=== PATIENT | male | born 1990 | race Caucasian/White ===

== ENCOUNTER 2020-04-24 11:06 | Emergency (ER) | payer BC ==
[2020-04-24] MEDS ORDERED: cefTRIAXone 1 GM in Sodium Chloride 0.9% 100 ML IV ONE (11:29)
[2020-04-24] MEDS ORDERED: Sodium Chloride 0.9% 2.5 ML Syringe FLUSH PRN (11:29)
[2020-04-24] MEDS ORDERED: Sodium Chloride 0.9% 3,000 ML IV ONE (11:29)
[2020-04-24] MEDS ORDERED: Sodium Chloride 0.9% 10 ML Syringe FLUSH PRN (11:29)
[2020-04-24] MEDS ORDERED: Vancomycin 2 GM in Dextrose 5% in Water 250 ML IV ONE ×2 (11:29)
[2020-04-24] MEDS ORDERED: Lidocaine 1% with EPINEPHrine 1:100,000 20 ML MDV INJECT ONE (11:32)
[2020-04-24] MEDS ORDERED: Diphtheria,Pertussis(Acell),Tetanus Vaccine 0.5 ML Syringe IM ONE (11:32)
[2020-04-24] MEDS ORDERED: HYDROmorphone 2 MG/ML Syringe IVPUSH ONE (11:33)
[2020-04-24] MEDS ORDERED: Acetaminophen 325 MG Tab PO ONE (11:33)
[2020-04-24] MEDS ORDERED: cefTRIAXone 1 GM in Premix Bag 1 BAG IV ONE (11:36)
[2020-04-24] MEDS ORDERED: Vancomycin/Water for INJ (PEG) 2 GM in Premix Bag 1 BAG IV ONE (11:43)
--- NOTE | 2020-04-24 11:45 | EDM.PDOC ---
ED [facility] GENERAL MEDICAL PROBLEM - General Chief Complaint: Skin Complaint Stated Complaint: CYST ON CHEST Time Seen by Provider: 04/24/20 11:10 - History of Present Illness INITIAL COMMENTS - FREE TEXT/NARRATIVE: HISTORY AND PHYSICAL: History of present illness: This 29-year-old male presents with a right upper chest wall cyst that has now become infected. He is a patient of Dr. Stanley, general surgery, who started him on antibiotics. Today the erythema had gotten worse and it spontaneously began to drain through a small punctate area he continued to have pain, swelling, and surrounding erythema that is getting worse. He also felt febrile and had a temperature at home. He reports that the pain is severe. No other associated signs or symptoms. No other modifying, aggravating or alleviating factors. Review of systems: A 10-point review of systems, other than pertinent positives and negatives as stated per HPI, is otherwise negative. Past medical history: As per history of present illness and as reviewed below otherwise noncontributory. Surgical history: As per history of present illness and as reviewed below otherwise noncontributory. Social history: No reported history of drug or alcohol abuse. Family history: As per history of present illness and as reviewed below otherwise noncontributory. Physical exam: VITAL SIGNS: Reviewed. GENERAL: Appears to be in acute pain. Wound is covered. Once it was uncovered/disrobed there is a 9 cm in diameter area of erythema with one area on the upper left area that has some purulent drainage. No lymphangitis. HEAD: No signs of head trauma. EYES: Pupils are equal. Extraocular motions intact. EARS: Hearing grossly intact. MOUTH: Oropharynx is normal. NECK: No adenopathy, no JVD. CHEST: Chest with clear breath sounds bilaterally. No wheezes, rales, or rhonchi. As above there is a 9 cm in diameter area of erythema with a fluctuant middle section and one area of punctate drainage. It is purulent. CARDIAC: Tachycardic rate. Regular rhythm. S1-S2 present. No murmurs gallops or rubs. VASCULAR: Peripheral pulses normal and equal in all extremities. ABDOMEN: Soft, without detectable tenderness. No sign of distention. No rebound or guarding, and no masses palpated. MUSCULOSKELETAL: Good range of motion of all major joints. Extremities without clubbing, cyanosis or edema. NEUROLOGIC EXAM: Alert and oriented x 3. No focal sensory or motor deficits. Speech normal. Follows commands. PSYCHIATRIC: Mood normal. SKIN: No rash or lesions. LYMPH: No lymphadenopathy noted Initial Differential Diagnosis & Plan: Abscess, cellulitis, infected cyst, necrotizing fasciitis, lymphangitis, sepsis The patient is pretty tachycardic. We will give IV fluids, IV antibiotics, and perform drainage of the area. Definitive disposition and diagnosis as appropriate pending reevaluation and review of above. Right Chest Pain Score (Numeric/FACES): 7 - Related Data Allergies Allergy/AdvReac Type Severity Reaction Status Date / Time Sulfa (Sulfonamide Allergy Hives Verified 04/24/20 11:20 Antibiotics) Home Meds: Home Meds Chlorhexidine Gluconate 4% [Hibiclens] 473 ml .XX DAILY 3 Days #1 bottle 04/24/20 [Rx] Doxycycline [Vibramycin] 100 mg PO BID 7 Days #14 tab 04/24/20 [Rx] Lactobacillus 3/Fos/Pantethine [Probiotic & Acidophilus] 1 each PO BID 30 Days #60 capsule 04/24/20 [Rx] Mupirocin Oint [Bactroban Oint] 22 gm TP BID 14 Days tube 04/24/20 [Rx] cephALEXin [Cephalexin] 500 mg PO QID 04/24/20 [History] Past Medical History - Past Health History Medical/Surgical History: Denies Medical/Surgical History - Infectious Disease History Infectious Disease History: Reports: None Social & Family History - Family History Family Medical History: Noncontributory - Caffeine Use Caffeine Use: Reports: None - Recreational Drug Use Recreational Drug Use: No ED ROS GENERAL - Review of Systems Review Of Systems: See Below (noted) ED EXAM, SKIN/RASH Exam: See Below (noted) ED SKIN PROCEDURES - I&D Skin Prep: Chlorhexidine (Hibiciens) Local Anesthesia: Lidocaine: 1% with EPI Local Anesthetic Volume: Other (11) Area Incised With: 11 Blade Drainage: Purulent, Large Amount Probed to Break Up Loculations: Yes Packed With: Other (Loop drainage placed) Sterile Dressing: Adhesive Dressing Complications: No (No complications.) Progress/Comments: Informed consent from patient. Area cleansed and prepped in normal fashion. Wound culture taken prior to incision and drainage. Sent to lab for further analysis and to test versus antibiotics because the patient is sulfa allergic. Will require doxycycline along with Keflex for MRSA coverage. Incision was made at the base on the inferior lateral edge. Loculations broken up with mosquito forceps and passed along until the opening where spontaneous drainage occurred. A vessel loop was then passed through from incision site to incision site and tied loosely. This will help prevent further loculation buildup and allow for appropriate drainage with minimal scarring. Complications none. The wound was washed out and covered with antibiotic ointment and a dressing. Appreciate the help and assistance of Ms. Alexandra NP, who assisted in the procedure and washed out the wound for me what tended to other patients. Course - Vital Signs Last Recorded V/S: Last Vital Signs Temp 97.4 F 04/24/20 11:21 Pulse 109 H 04/24/20 14:59 Resp 16 04/24/20 14:59 BP 123/75 04/24/20 14:59 Pulse Ox 96 04/24/20 14:59 - Orders/Labs/Meds Labs: Laboratory Tests 04/24/20 04/24/20 04/24/20 Range/Units 11:50 11:50 11:50 WBC 12.46 H (4.0-11.0) K/uL RBC 5.21 (4.50-5.90) M/uL Hgb 16.8 (13.0-17.0) g/dL Hct 49.7 (38.0-50.0) % MCV 95.4 (80.0-98.0) fL MCH 32.2 H (27.0-32.0) pg MCHC 33.8 (31.0-37.0) g/dL RDW Std Deviation 44.9 (28.0-62.0) fl RDW Coeff of Evaristo 13 (11.0-15.0) % Plt Count 335 (150-400) K/uL MPV 10.10 (7.40-12.00) fL Neut % (Auto) 75.6 (48.0-80.0) % Lymph % (Auto) 16.5 (16.0-40.0) % Floyd % (Auto) 6.7 (0.0-15.0) % Eos % (Auto) 1.0 (0.0-7.0) % Baso % (Auto) 0.2 (0.0-1.5) % Neut # (Auto) 9.4 H (1.4-5.7) K/uL Lymph # (Auto) 2.1 (0.6-2.4) K/uL Floyd # (Auto) 0.8 (0.0-0.8) K/uL Eos # (Auto) 0.1 (0.0-0.7) K/uL Baso # (Auto) 0.0 (0.0-0.1) K/uL Nucleated RBC % 0.0 /100WBC Nucleated RBCs # 0 K/uL INR 0.99 Lactate 1.7 (0.20-2.00) mmol/L Sodium (136-148) mmol/L Potassium (3.5-5.1) mmol/L Chloride (98-107) mmol/L Carbon Dioxide (21.0-32.0) mmol/L BUN (7.0-18.0) mg/dL Creatinine (0.8-1.3) mg/dL Est Cr Clr Drug Dosing mL/min Estimated GFR (MDRD) ml/min Glucose (74-106) mg/dL Calcium (8.5-10.1) mg/dL Total Bilirubin (0.2-1.0) mg/dL AST (15-37) IU/L ALT (14-63) IU/L Alkaline Phosphatase (46-116) U/L Total Protein (6.4-8.2) g/dL Albumin (3.4-5.0) g/dL Globulin (2.6-4.0) g/dL Albumin/Globulin Ratio (0.9-1.6) 04/24/20 Range/Units 11:50 WBC (4.0-11.0) K/uL RBC (4.50-5.90) M/uL Hgb (13.0-17.0) g/dL Hct (38.0-50.0) % MCV (80.0-98.0) fL MCH (27.0-32.0) pg MCHC (31.0-37.0) g/dL RDW Std Deviation (28.0-62.0) fl RDW Coeff of Evaristo (11.0-15.0) % Plt Count (150-400) K/uL MPV (7.40-12.00) fL Neut % (Auto) (48.0-80.0) % Lymph % (Auto) (16.0-40.0) % Floyd % (Auto) (0.0-15.0) % Eos % (Auto) (0.0-7.0) % Baso % (Auto) (0.0-1.5) % Neut # (Auto) (1.4-5.7) K/uL Lymph # (Auto) (0.6-2.4) K/uL Floyd # (Auto) (0.0-0.8) K/uL Eos # (Auto) (0.0-0.7) K/uL Baso # (Auto) (0.0-0.1) K/uL Nucleated RBC % /100WBC Nucleated RBCs # K/uL INR Lactate (0.20-2.00) mmol/L Sodium 139 (136-148) mmol/L Potassium 4.5 (3.5-5.1) mmol/L Chloride 102 (98-107) mmol/L Carbon Dioxide 26.3 (21.0-32.0) mmol/L BUN 14 (7.0-18.0) mg/dL Creatinine 0.9 (0.8-1.3) mg/dL Est Cr Clr Drug Dosing 123.92 mL/min Estimated GFR (MDRD) > 60.0 ml/min Glucose 132 H (74-106) mg/dL Calcium 9.7 (8.5-10.1) mg/dL Total Bilirubin 0.4 (0.2-1.0) mg/dL AST 26 (15-37) IU/L ALT 68 H (14-63) IU/L Alkaline Phosphatase 119 H (46-116) U/L Total Protein 7.7 (6.4-8.2) g/dL Albumin 4.0 (3.4-5.0) g/dL Globulin 3.7 (2.6-4.0) g/dL Albumin/Globulin Ratio 1.1 (0.9-1.6) Meds: Medications Discontinued Medications Generic Name Dose Route Start Last Admin Trade Name Freq PRN Reason Stop Dose Admin Acetaminophen 975 mg 04/24/20 11:33 04/24/20 11:56 Tylenol PO 04/24/20 11:34 975 mg NOW ONE Administration Bacitracin Confirm 04/24/20 12:36 04/24/20 12:55 Bacitracin Oint 1 Gm Administered 04/24/20 12:37 Not Given Dose 1 dose .ROUTE .STK-MED ONE Diphtheria/Tetanus/Acell Pertussis 0.5 ml 04/24/20 11:32 04/24/20 11:56 Adacel IM 04/24/20 11:33 0.5 ml .ONCE ONE Administration Hydromorphone HCl 1 mg 04/24/20 11:33 04/24/20 11:55 Dilaudid IVPUSH 04/24/20 11:34 1 mg ONETIME ONE Administration Sodium Chloride 3,000 mls @ 3,000 mls/hr 04/24/20 11:29 04/24/20 11:55 Normal Saline IV 04/24/20 12:28 3,000 mls/hr BOLUS ONE Administration Protocol Vancomycin HCl 2 gm/ Dextrose/ 250 mls @ 167 mls/hr 04/24/20 11:29 04/24/20 11:58 Water IV 04/24/20 12:58 Not Given ONETIME ONE Ceftriaxone Sodium 1 gm/ 100 mls @ 200 mls/hr 04/24/20 11:29 04/24/20 11:58 Sodium Chloride IV 04/24/20 11:58 Not Given STAT ONE Ceftriaxone Sodium/Dextrose 1 50 mls @ 100 mls/hr 04/24/20 11:36 04/24/20 11:57 gm/ Premix IV 04/24/20 12:05 100 mls/hr ONETIME ONE Administration Vancomycin HCl 2 gm/ Premix 400 mls @ 200 mls/hr 04/24/20 11:43 04/24/20 11:56 IV 04/24/20 13:28 200 mls/hr ONETIME ONE Administration Lidocaine/Epinephrine 20 ml 04/24/20 11:32 04/24/20 11:57 Xylocaine 1% With Epinephrine 1:100,000 INJECT 04/24/20 11:33 20 ml ONETIME ONE Administration Mupirocin 1 gm 04/24/20 12:33 04/24/20 12:36 Bactroban Oint TOP 04/24/20 12:34 1 gm ONETIME ONE Administration Sodium Chloride 10 ml 04/24/20 11:29 04/24/20 11:57 Saline Flush FLUSH 10 ml ASDIRECTED PRN Administration Keep Vein Open Sodium Chloride 2.5 ml 04/24/20 11:29 04/24/20 11:57 Saline Flush FLUSH 2.5 ml ASDIRECTED PRN Administration Keep Vein Open - Re-Assessments/Exams Free Text/Narrative Re-Assessment/Exam: 04/24/20 12:44 The patient has SIRS criteria likely secondary to his infection. Given the scalded skin type appearance of the infection I am concerned that he has Staph aureus and this may represent MRSA. I will expand his antibiotic coverage to include doxycycline. He was given intravenous antibiotics today as we were performing the incision and drainage. I opted for the loop drainage given the site of the infection, possibility for bleeding if there was a wide incision and drainage, and lack of availability to adequately remove the cyst now that it has become infected, inflamed, and is spontaneously draining. Given the patient's significant tachycardia and SIRS criteria I felt it important to give him IV fluids, antipyretics, intravenous antibiotics, and reevaluate him. The loop drainage was performed at bedside with the assistance of Ms. Morris, WALDO, and washed out thoroughly. If the patient's vital signs improved and he is doing well after initial treatment we plan to discharge him home with follow-up to Dr. Stanley, general surgery. My diagnostic impression: 1. Infected cyst 2. Likely Staph aureus infection 3. SIRS criteria/early sepsis 4. Status post incision and drainage with loop technique Departure - Departure Time of Disposition: 12:38 Disposition: Home, Self-Care 01 Clinical Impression: Abscess, Infected cyst of skin, Cellulitis, SIRS (systemic inflammatory response syndrome), Allergy to sulfa drugs, Staphylococcal infection of skin, Status post incision and drainage - Discharge Information *PRESCRIPTION DRUG MONITORING PROGRAM REVIEWED*: Not Applicable *COPY OF PRESCRIPTION DRUG MONITORING REPORT IN PATIENT YUE: Not Applicable Prescriptions: Mupirocin Oint [Bactroban Oint] 22 gm TP BID 14 Days tube Chlorhexidine Gluconate 4% [Hibiclens] 473 ml .XX DAILY 3 Days #1 bottle Lactobacillus 3/Fos/Pantethine [Probiotic & Acidophilus] 1 each PO BID 30 Days #60 capsule Doxycycline [Vibramycin] 100 mg PO BID 7 Days #14 tab Instructions: Skin Abscess, Cellulitis, Adult, Incision Care, Adult, [id number] Referrals: PCP,None [Primary Care Provider] - Forms: ED Department Discharge Additional Instructions: The following information is given to patients seen in the emergency department who are being discharged to home. This information is to outline your options for follow-up care. We provide all patients seen in our emergency department with a follow-up referral. The need for follow-up, as well as the timing and circumstances, are variable depending upon the specifics of your emergency department visit. If you don't have a primary care physician on staff, we will provide you with a referral. We always advise you to contact your personal physician following an emergency department visit to inform them of the circumstance of the visit and for follow-up with them and/or the need for any referrals to a consulting specialist. The emergency department will also refer you to a specialist when appropriate. This referral assures that you have the opportunity for follow-up care with a specialist. All of these measure are taken in an effort to provide you with optimal care, which includes your follow-up. Thank you for coming to the [facility] urgency department for your care today. It was Dr. Pan's pleasure to take care of you. Please follow-up with Dr. Stanley as arranged. Your skin cyst became infected and had some spontaneous drainage. He required incision and drainage. We used a technique called vessel loop drainage. The loop was placed through your inc ision sites to allow your incision to drain. Continue to move the loop [id number] in the shower as you wash this out twice a day minimum. Warm compresses as often as possible. Use the antibiotic ointment and antibiotics as prescribed. Please had to your Keflex (cephalexin) the doxycycline that we are giving you. The type of infection most likely to cause your symptoms is called Staph aureus. This type of infection requires special antibiotics the majority of the time. You are allergic to sulfa and therefore we have to choose a different antibiotic that may not work as well. If your wound worsens please return to the emergency department. Return immediately for fever, vomiting, increased pain, or spreading of your infection. You may cut the loop out after 7 days if your infection is improving. Remember if you have questions, concerns, or any worsening please return to the emergency department as we are always happy to see you. Under all circumstances we always encourage you to contact your private physician who remains a resource for coordinating your care. When calling for follow-up care, please make the office aware that this follow-up is from your recent emergency room visit. If for any reason you are refused follow-up, please contact the [facility] Emergency Department at and asked to speak to the emergency department charge nurse. Sepsis Event Note (ED) - Evaluation Sepsis Screening Result: No Definite Risk
[2020-04-24 12:29] LABS: BLOOD UREA NITROGEN,BUN 14 mg/dL (7.0-18.0); CARBON DIOXIDE,CO2 26.3 mmol/L (21.0-32.0); CHLORIDE,CL 102 mmol/L (98-107); GLUCOSE RANDOM 132 mg/dL (74-106); POTASSIUM,K 4.5 mmol/L (3.5-5.1); SODIUM,NA 139 mmol/L (136-148)
[2020-04-24] MEDS ORDERED: Mupirocin Oint 22 GM Tube TOP ONE (12:33)
[2020-04-24] MEDS ORDERED: Bacitracin Oint 1 GM U/D Packet ONE (12:36)
== END 2020-04-24 14:59 | disposition home or self-care (01) ==
LOC: MW.ED 11:06
DX: L02.91 Cutaneous abscess, unspecified (principal); L03.90 Cellulitis, unspecified; R65.10 Systemic inflammatory response syndrome (SIRS) of non-infectious origin without acute organ dysfunction; Z88.2 Allergy status to sulfonamides
CPT/HCPCS: 10061; 36415; 80053; 83605; 85025; 85610; 87040; 87070; 90471; 90715; 96365; 96366; 96367; 96375; 99283; A9270; J0696; J1170; J3370; J7030